=== PATIENT | male | born 1950 | race Hispanic/Latino ===

== ENCOUNTER 2018-02-06 17:56 | Observation (INO) | payer MEDICARE, MEDICAID ==
[2018-02-06 17:56] VITALS: BMI 25.1
--- NOTE | 2018-02-06 18:35 | ED PDOC ---
HPI: Psych/Substance Abuse Time Seen by Provider: 02/06/18 18:25 Chief Complaint (Nursing): Psychiatric Evaluation Chief Complaint (Provider): Aggressive ED Caveat: Dementia History Per: Patient, EMS History/Exam Limitations: clinical condition Onset/Duration Of Symptoms: Days (several days) Additional Complaint(s): Pt[facility] from the [facility] for aggressive behavior and refusing to take meds. States they are poison. Pt. communicating some, but has schizoaffective and dementia issues so H and P limited. Pt. denies any pain. Follows some commands. Not aggressive in the Er. Past Medical History Reviewed: Nursing Documentation, Vital Signs Vital Signs: Last Vital Signs Temp 100.3 F H 02/06/18 17:58 Pulse 99 H 02/06/18 17:58 Resp 18 02/06/18 17:58 BP 124/72 02/06/18 17:58 Pulse Ox 95 02/06/18 17:58 - Medical History PMH: Anemia, Anxiety, Arthritis, Bipolar Disorder, Cardia Arrhythmia, Dementia, Depression, Hepatitis (C), HIV, HTN, Schizophrenia Denies: Diabetes, Chronic Kidney Disease, Seizures, Sexually Transmitted Disease - Family History Family History: States: Unknown Family Hx - Living Arrangements Living Arrangements: Skilled Nursing/Assist Lv - Home Medications Home Medications: Ambulatory Orders Medication Instructions Recorded Acetaminophen [Tylenol 325mg tab] 650 mg PO Q6 PRN MDD 3 GM 02/07/18 Acetaminophen [Tylenol 325mg tab] 650 mg PO Q6 PRN MDD 3 GM 02/07/18 Aspirin [Adult Low Dose Aspirin EC] 81 mg PO DAILY 02/07/18 Emtricitabine/Tenofovir Diso 1 tab PO DAILY 02/07/18 [Truvada 200 MG-300 MG] Magnesium Hydroxide [Milk of 30 ml PO Q72 PRN 02/07/18 Magnesia] RX: Simvastatin [Zocor] 40 mg PO HS 02/07/18 RX: Valproic Acid [Depakene Oral 250 mg PO TID 02/07/18 Syrup] RX: risperiDONE [RisperDAL Tab] 1 mg PO BID 02/07/18 Raltegravir Potassium [Isentress] 400 mg PO BID 02/07/18 - Allergies Allergies/Adverse Reactions: Allergies Allergy/AdvReac Type Severity Reaction Status Date / Time No Known Allergies Allergy Verified 04/19/16 13:28 Review of Systems Review Of Systems: ROS cannot be obtained secondary to pt's inabilty to answer questions. Physical Exam - Reviewed Nursing Documentation Reviewed: Yes Vital Signs Reviewed: Yes - Physical Exam Appears: Positive for: Non-toxic, No Acute Distress Head Exam: Positive for: ATRAUMATIC, NORMAL INSPECTION, NORMOCEPHALIC Skin: Positive for: Normal Color, Warm, DRY Eye Exam: Positive for: Normal appearance, PERRL ENT: Positive for: Normal ENT Inspection Neck: Positive for: Normal, Supple Cardiovascular/Chest: Positive for: Regular Rate, Rhythm Respiratory: Positive for: CNT, Normal Breath Sounds Gastrointestinal/Abdominal: Positive for: Normal Exam, Soft. Negative for: Tenderness Back: Positive for: Normal Inspection Extremity: Positive for: Other (moving extremities on his will; twitching in extremities and face). Negative for: Tenderness Neurologic/Psych: Positive for: Alert, Other (limited and pt. not following all commands and not responding to most questions. ) - Laboratory Results Result Diagrams: 02/06/18 21:23 02/06/18 19:36 Interpretation Of Abn Labs: no acute; lacate 2.2 - ECG ECG: Positive for: Interpreted By Me, Viewed By Mt ECG Rhythm: Positive for: Sinus Rhythm O2 Sat by Pulse Oximetry: 95 Pulse Ox Interpretation: Normal - Radiology X-Ray: Interpreted by Me, Viewed By Mt X-Ray Interpretation: No Acute Disease - Progress ED Course And Treament: 1835: Pt. with low grade temp. Will evaluate for fever sources. Is alert. 2257: No acute infectious etiologies. Comfortable in bed. Medically stable for psych evaluation. 2358: Dr. Morley to take over care. Disposition - Clinical Impression Clinical Impression: Dementia, Altered mental status - Disposition Disposition Time: 23:44 Condition: FAIR
[2018-02-06] MEDS: Sodium Chloride 0.9% 1,000 ML IV SCH (18:52)
[2018-02-06 19:11] LABS: VENOUS BLOOD GAS BASE EXCESS 5.9 mmol/L (0.0-2.0); VENOUS BLOOD GAS PCO2 32 mmHg (40-60); VENOUS BLOOD GAS PO2 112 mm/Hg (30-55); VENOUS BLOOD PH 7.55 (7.32-7.43)
[2018-02-06 19:53] LABS: INR 1.2; PROTHROMBIN TIME 13.4 Seconds (9.8-13.1)
[2018-02-06 19:55] LABS: PARTIAL THROMBOPLASTIN TIME 31.1 Seconds (25.6-37.1)
[2018-02-06 20:00] LABS: ALB/GLOB RATIO 0.9 (1.0-2.1); ALBUMIN 3.4 g/dL (3.5-5.0); ALT/SGPT 32 U/L (21-72); AST/SGOT 38 U/L (17-59); BLOOD UREA NITROGEN 19 mg/dl (9-20); CALCIUM 8.6 mg/dL (8.4-10.2); GFR NON-AFRICAN AMERICAN > 60
[2018-02-06 20:09] LABS: URINE BACTERIA RARE (<OCC); URINE BILIRUBIN NEGATIVE (NEGATIVE); URINE BLOOD NEGATIVE (NEGATIVE); URINE CLARITY SLIGHTY-CLOUDY (Clear); URINE COLOR YELLOW (YELLOW); URINE GLUCOSE (UA) NEG (Normal); URINE LEUKOCYTE ESTERASE NEG Leu/uL (Negative); URINE PROTEIN 100 mg/dL (NEGATIVE)
[2018-02-06 20:24] LABS: BARBITURATES, UR NEGATIVE (NEGATIVE); BENZODIAZEPINES, UR NEGATIVE (NEGATIVE); OPIATES, UR NEGATIVE (NEGATIVE); PHENCYCLIDINE, UR NEGATIVE (NEGATIVE)
[2018-02-06 21:27] LABS: BASO % 0.5 % (0.0-2.0); EOS # 0.1 K/uL (0.0-0.7); EOS % 1.7 % (0.0-4.0); HEMOGLOBIN 13.9 g/dL (12.0-18.0); LYMPH # 1.6 K/uL (1.0-4.3); LYMPH % 22.3 % (20.0-40.0); MEAN CELL VOLUME 94.9 fl (80.0-94.0); MEAN CORPUSCULAR HGB CONC 32.7 g/dL (33.0-37.0); MEAN PLATELET VOLUME 10.4 fl (7.2-11.7); MONO # 1.3 K/uL (0.0-0.8); MONO % 17.5 % (0.0-10.0); NEUT # 4.2 K/uL (1.8-7.0); NRBC % 0.1 % (0.0-0.0); RBC 4.49 Mil/uL (4.40-5.90); RED CELL DISTRIBUTION WIDTH 14.9 % (11.5-14.5); WHITE BLOOD COUNT 7.2 K/uL (4.8-10.8)
--- NOTE | 2018-02-07 00:22 | ED PDOC ---
- Laboratory Results Result Diagrams: 02/06/18 21:23 02/06/18 19:36 - ECG O2 Sat by Pulse Oximetry: 95 (RA) Pulse Ox Interpretation: Normal Medical Decision Making Medical Decision Making: Time: 13 -- Received endorsement from Dr. Abreu, pending crisis evaluation. 0200 Cooperative, no change 0400 Cooperative, no changes 0700 Pending final eval by crisis, will endorse to Dr. Jhaveri Scribe Attestation: Documented by Shahla Vegas, acting as a scribe for Dillan Morley MD. Provider Scribe Attestation: All medical record entries made by the Scribe were at my direction and personally dictated by me. I have reviewed the chart and agree that the record accurately reflects my personal performance of the history, physical exam, medical decision making, and the department course for this patient. I have also personally directed, reviewed, and agree with the discharge instructions and disposition. Disposition - Clinical Impression Clinical Impression: Dementia - POA Present On Arrival: None - Disposition Disposition: Transfer of Care Disposition Time: 07:00 Forms: [facility] (Urdu) Patient Signed Over To: Leo Jhaveri Handoff Comments: pending final crisis eval
[2018-02-07] MEDS: Sodium Chloride 0.9% 1,000 ML IV SCH (07:33)
--- NOTE | 2018-02-07 07:55 | ED PDOC ---
- Laboratory Results Result Diagrams: 02/06/18 21:23 02/06/18 19:36 - ECG O2 Sat by Pulse Oximetry: 95 (RA) - Progress Re-evaluation Time: 07:54 Condition: Re-examined (Stable. No SI/HI) Disposition - Clinical Impression Clinical Impression: Dementia - POA Present On Arrival: None - Disposition Disposition: Rehab Facility/Unit Disposition Time: 07:54 Condition: FAIR Instructions: Dementia (Including Alzheimer Disease) Forms: [facility] (Georgian)
--- NOTE | 2018-02-07 08:41 | RAD ---
Date of service: 02/06/2018 HISTORY: Sepsis Patient COMPARISON: Chest radiograph dated 05/16/2016 FINDINGS: LUNGS: No active pulmonary disease. PLEURA: No significant pleural effusion identified, no pneumothorax apparent. CARDIOVASCULAR: Aortic atherosclerotic calcifications. Cardiomediastinal silhouette stably enlarged. No pulmonary vascular congestion. OSSEOUS STRUCTURES: Unchanged. VISUALIZED UPPER ABDOMEN: Normal. OTHER FINDINGS: None. IMPRESSION: No active disease.
--- NOTE | 2018-02-07 09:03 | CT ---
Date of service: 02/06/2018 PROCEDURE: CT HEAD WITHOUT CONTRAST. HISTORY: headache COMPARISON: CT head dated 11/25/2013 TECHNIQUE: Axial computed tomography images were obtained through the head/brain without intravenous contrast. Radiation dose: Total exam DLP = 1326.42 mGy-cm. This CT exam was performed using one or more of the following dose reduction techniques: Automated exposure control, adjustment of the mA and/or kV according to patient size, and/or use of iterative reconstruction technique. FINDINGS: HEMORRHAGE: No intracranial hemorrhage. BRAIN: No mass effect or edema. Moderate cerebral atrophy. 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 Lacunar infarctions in bilateral cerebellar hemispheres. These findings were not present on the prior study. VENTRICLES: Prominent no hydrocephalus. CALVARIUM: Unremarkable. PARANASAL SINUSES: Unremarkable as visualized. No significant inflammatory changes. MASTOID AIR CELLS: Unremarkable as visualized. No inflammatory changes. OTHER FINDINGS: None. IMPRESSION: No acute intracranial pathology. Age-related changes. 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
[2018-02-07] MEDS ORDERED: Dextrose 5%/Lactated Ringer's 1,000 ML IV SCH ×2 (18:15→18:45)
[2018-02-07] MEDS ORDERED: Magnesium Hydroxide Susp 30 ml UD PO PRN (18:52)
--- NOTE | 2018-02-08 08:31 | CP.PCM.CON ---
History of Present Illness - History of Present Illness History of Present Illness: Psychiatry consult note HPI: 67 yo male with history of schizoaffective disorder-bipolar type, dementia with behavioral disturbances, HIV, HTN, Hepatitis C, was sent from the long term for aggressive behavior, refusal to take medication and poor PO intake. Patient refusing to engage in interview with editorial writer. Local Sales Manager attempted to speak with patient, he opened his eye and then pulled the covers over his face and would not say anything. Past Psychiatric History: History of multiple psychiatric hospitalizations for psychosis and agitation. Currently being treated w/ Risperdal and Depakote. Family History: No family history of psychiatric illness Past Medical History: HIV, HTN, Hepatitis C Social history: Grew up in [place]. 3 brothers and 2 sisters. Studied up to the 9th grade. 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 . +2 sons. Lives in a long term. As per chart history of heroin abuse. No current drug/ etoh use. All: NKDA Impression: 67 yo male with history of schizoaffective disorder-bipolar type, dementia with behavioral disturbances, HIV, HTN, Hepatitis C, presents with aggressive behavior and possible psychosis, unable to evaluate due to patient's refusal to talk to editorial writer. -Titrate Risperdal -Continue Depakote -Patient unable to consent for voluntary psychiatric admission at this time Past Patient History - Infectious Disease Hx of Infectious Diseases: None - Past Social History Smoking Status: Former Smoker - CARDIAC Hx Cardia Arrhythmia: Yes Hx Hypertension: Yes - PULMONARY Hx Tuberculosis: No - NEUROLOGICAL Hx Dementia: Yes Hx Seizures: No - HEENT Hx HEENT Problems: No - RENAL Hx Chronic Kidney Disease: No - ENDOCRINE/METABOLIC Hx Endocrine Disorders: No - HEMATOLOGICAL/ONCOLOGICAL Hx Anemia: Yes Hx Human Immunodeficiency Virus (HIV): Yes - INTEGUMENTARY Hx Dermatological Problems: No - MUSCULOSKELETAL/RHEUMATOLOGICAL Hx Arthritis: Yes - GASTROINTESTINAL Hx Gastrointestinal Disorders: No - GENITOURINARY/GYNECOLOGICAL Hx Sexually Transmitted Disorders: No - PSYCHIATRIC Hx Anxiety: Yes Hx Bipolar Disorder: Yes Hx Depression: Yes Hx Schizophrenia: Yes - SURGICAL HISTORY Hx Surgeries: No - ANESTHESIA Hx Anesthesia: No Meds Allergies/Adverse Reactions: Allergies Allergy/AdvReac Type Severity Reaction Status Date / Time No Known Allergies Allergy Verified 04/19/16 13:28 - Medications Medications: Current Medications Acetaminophen (Tylenol 325mg Tab) 650 mg PO Q6 PRN PRN Reason: Pain, moderate (4-7) Aspirin (Ecotrin) 81 mg PO DAILY [facility] Atorvastatin Calcium (Lipitor) 40 mg PO HS [facility] Emtricitabine/Tenofovir (Truvada 200 Mg-300 Mg) 1 tab PO DAILY [facility]; Protocol Sodium Chloride (Sodium Chloride 0.9%) 1,000 mls @ 1,000 mls/hr IV .Q1H [facility] Last Admin: 02/07/18 07:33 Dose: Not Given Dextrose/Lactated Ringer's (Dextrose 5%/Lactated Ringer's) 1,000 mls @ 80 mls/hr IV .[id number] [facility] Stop: 02/08/18 18:05 Dextrose/Lactated Ringer's (Dextrose 5%/Lactated Ringer's) 1,000 mls @ 80 mls/hr IV .[id number] [facility] Stop: 02/08/18 18:41 Magnesium Hydroxide (Milk Of Magnesia) 30 ml PO Q72 PRN PRN Reason: Constipation Raltegravir (Isentress) 400 mg PO BID [facility]; Protocol Risperidone (Risperdal Tab) 1 mg PO BID [facility] Valproate Sodium (Depakene Oral Syrup) 250 mg PO TID [facility] Results - Vital Signs Recent Vital Signs: Last Vital Signs Temp 98.6 F 02/07/18 16:14 Pulse 82 02/07/18 16:14 Resp 20 02/07/18 16:14 BP 107/66 02/07/18 16:14 Pulse Ox 95 02/07/18 23:44 - Labs Result Diagrams: 02/06/18 21:23 02/06/18 19:36
[2018-02-08] MEDS: Valproic Acid 250 mg/5 ml Oral Syrup (60 ml) PO SCH ×3 (09:07→17:20)
[2018-02-08] MEDS: Emtricitabine-Tenofovir 200 mg-300 mg Tab PO SCH (09:08)
[2018-02-08] MEDS: Risperidone M TAB 2 MG PO SCH (17:20)
--- NOTE | 2018-02-08 23:03 | CP.PCM.HP ---
History of Present Illness - History of Present Illness History of Present Illness: This is a 67 y/o male admitted ofr change in mental status [facility] of [facility] the [facility]. He refused to take his medications as he claims they were poison. Patient could not give full history due to dementia. Medical Hx Anxiety, bipolar disorder HTN cardiac arrhythmia HIV hep C Dementia Present on Admission - Present on Admission Any Indicators Present on Admission: No History of DVT/PE: No History of Uncontrolled Diabetes: No Urinary Catheter: No Decubitus Ulcer Present: No Review of Systems - Review of Systems Systems not reviewed;Unavailable: Uncooperative - Constitutional Constitutional: Daytime Sleepiness - Neurological Neurological: Behavioral Changes, Confusion - Psychiatric Psychiatric: Behavioral Changes Past Patient History - Infectious Disease Hx of Infectious Diseases: None - Past Social History Smoking Status: Former Smoker - CARDIAC Hx Cardia Arrhythmia: Yes Hx Hypertension: Yes - PULMONARY Hx Tuberculosis: No - NEUROLOGICAL Hx Dementia: Yes Hx Seizures: No - HEENT Hx HEENT Problems: No - RENAL Hx Chronic Kidney Disease: No - ENDOCRINE/METABOLIC Hx Endocrine Disorders: No - HEMATOLOGICAL/ONCOLOGICAL Hx Anemia: Yes Hx Human Immunodeficiency Virus (HIV): Yes - INTEGUMENTARY Hx Dermatological Problems: No - MUSCULOSKELETAL/RHEUMATOLOGICAL Hx Arthritis: Yes - GASTROINTESTINAL Hx Gastrointestinal Disorders: No - GENITOURINARY/GYNECOLOGICAL Hx Sexually Transmitted Disorders: No - PSYCHIATRIC Hx Anxiety: Yes Hx Bipolar Disorder: Yes Hx Depression: Yes Hx Schizophrenia: Yes - SURGICAL HISTORY Hx Surgeries: No - ANESTHESIA Hx Anesthesia: No Meds Allergies/Adverse Reactions: Allergies Allergy/AdvReac Type Severity Reaction Status Date / Time No Known Allergies Allergy Verified 04/19/16 13:28 Physical Exam - Head Exam Head Exam: NORMAL INSPECTION - Eye Exam Eye Exam: Normal appearance - ENT Exam ENT Exam: Mucous Membranes Moist - Respiratory Exam Respiratory Exam: Clear to Auscultation Bilateral - Cardiovascular Exam Cardiovascular Exam: REGULAR RHYTHM - GI/Abdominal Exam GI & Abdominal Exam: Normal Bowel Sounds - Neurological Exam Neurological exam: Altered - Psychiatric Exam Psychiatric exam: Agitated Results - Vital Signs Recent Vital Signs: Last Vital Signs Temp 97.3 F L 02/08/18 08:00 Pulse 82 02/07/18 16:14 Resp 20 02/07/18 16:14 BP 107/66 02/07/18 16:14 Pulse Ox 95 02/07/18 23:44 - Labs Result Diagrams: 02/06/18 21:23 02/06/18 19:36 Assessment & Plan (1) Altered mental status Status: Acute (2) Dementia Status: Chronic Priority: Low (3) HTN (hypertension) Status: Chronic (4) History of HIV or AIDS Status: Chronic (5) Schizoaffective disorder Status: Chronic - Assessment and Plan (Free Text) Plan: Cont meds Psych eval Iv hydration labs reviewed Patient is stable for Psych admit.
--- NOTE | 2018-02-08 23:04 | CP.PCM.PN ---
Subjective - Date & Time of Evaluation Date of Evaluation: 02/08/18 Time of Evaluation: 18:35 - Subjective Subjective: Patient remains very aggressive marva with the nurses. No change in clinical sx Remains aggressive and uncooperative. Objective - Vital Signs/Intake and Output Vital Signs (last 24 hours): Temp Pulse Resp BP Pulse Ox 97.3 F L 82 20 107/66 95 02/08/18 08:00 02/07/18 16:14 02/07/18 16:14 02/07/18 16:14 02/07/18 23:44 - Medications Medications: Current Medications Acetaminophen (Tylenol 325mg Tab) 650 mg PO Q6 PRN PRN Reason: Pain, moderate (4-7) Aspirin (Ecotrin) 81 mg PO DAILY [facility] Last Admin: 02/08/18 09:07 Dose: Not Given Atorvastatin Calcium (Lipitor) 40 mg PO HS [facility] Last Admin: 02/08/18 21:04 Dose: Not Given Emtricitabine/Tenofovir (Truvada 200 Mg-300 Mg) 1 tab PO DAILY [facility]; Protocol Last Admin: 02/08/18 09:08 Dose: 1 tab Haloperidol Lactate (Haldol) 2 mg IM Q6 PRN PRN Reason: Agitation Magnesium Hydroxide (Milk Of Magnesia) 30 ml PO Q72 PRN PRN Reason: Constipation Raltegravir (Isentress) 400 mg PO BID [facility]; Protocol Last Admin: 02/08/18 17:20 Dose: 400 mg Risperidone (Risperdal M-Tab) 2 mg PO BID [facility] Last Admin: 02/08/18 17:20 Dose: 2 mg Valproate Sodium (Depakene Oral Syrup) 250 mg PO TID [facility] Last Admin: 02/08/18 17:20 Dose: 250 mg - Labs Labs: 02/06/18 21:23 02/06/18 19:36 PT 13.4 Seconds (9.8-13.1) H 02/06/18 18:22 INR 1.2 02/06/18 18:22 APTT 31.1 Seconds (25.6-37.1) 02/06/18 18:22 - Head Exam Head Exam: NORMAL INSPECTION - Eye Exam Eye Exam: Normal appearance - ENT Exam ENT Exam: Mucous Membranes Moist - Respiratory Exam Respiratory Exam: Clear to Ausculation Bilateral - Cardiovascular Exam Cardiovascular Exam: REGULAR RHYTHM - GI/Abdominal Exam GI & Abdominal Exam: Soft, Normal Bowel Sounds - Neurological Exam Neurological Exam: Altered Assessment and Plan (1) Altered mental status Status: Acute (2) Dementia Status: Chronic (3) Behavioral change Status: Chronic (4) HTN (hypertension) Status: Chronic (5) History of HIV or AIDS Status: Chronic (6) Schizoaffective disorder Status: Chronic - Assessment and Plan (Free Text) Plan: Cont meds Follow up with Psych Medically stable for Psych admit
[2018-02-09] MEDS: Risperidone M TAB 2 MG PO SCH ×3 (10:18→16:42)
[2018-02-09] MEDS: Valproic Acid 250 mg/5 ml Oral Syrup (60 ml) PO SCH ×4 (10:18→16:40)
[2018-02-09] MEDS: Emtricitabine-Tenofovir 200 mg-300 mg Tab PO SCH ×2 (10:18→16:41)
--- NOTE | 2018-02-09 12:37 | CP.PCM.PN ---
Subjective - Date & Time of Evaluation Date of Evaluation: 02/09/18 Time of Evaluation: 11:00 Objective - Vital Signs/Intake and Output Vital Signs (last 24 hours): Temp Pulse Resp BP Pulse Ox 97.9 F 93 H 19 92/56 L 95 02/09/18 08:08 02/09/18 08:08 02/09/18 08:08 02/09/18 08:08 02/09/18 08:08 - Medications Medications: Current Medications Acetaminophen (Tylenol 325mg Tab) 650 mg PO Q6 PRN PRN Reason: Pain, moderate (4-7) Aspirin (Ecotrin) 81 mg PO DAILY [facility] Last Admin: 02/09/18 10:18 Dose: Not Given Atorvastatin Calcium (Lipitor) 40 mg PO HS [facility] Last Admin: 02/08/18 21:04 Dose: Not Given Emtricitabine/Tenofovir (Truvada 200 Mg-300 Mg) 1 tab PO DAILY [facility]; Protocol Last Admin: 02/09/18 10:18 Dose: Not Given Haloperidol Lactate (Haldol) 2 mg IM Q6 PRN PRN Reason: Agitation Magnesium Hydroxide (Milk Of Magnesia) 30 ml PO Q72 PRN PRN Reason: Constipation Raltegravir (Isentress) 400 mg PO BID [facility]; Protocol Last Admin: 02/09/18 10:18 Dose: Not Given Risperidone (Risperdal M-Tab) 2 mg PO BID [facility] Last Admin: 02/09/18 10:18 Dose: Not Given Valproate Sodium (Depakene Oral Syrup) 250 mg PO TID [facility] Last Admin: 02/09/18 10:18 Dose: Not Given - Labs Labs: 02/06/18 21:23 02/06/18 19:36 PT 13.4 Seconds (9.8-13.1) H 02/06/18 18:22 INR 1.2 02/06/18 18:22 APTT 31.1 Seconds (25.6-37.1) 02/06/18 18:22
[2018-02-09 16:52] VITALS: BP 98/62; PULSE 97; RESP 20; TEMP 98.5; O2SAT 97
--- NOTE | 2018-02-09 18:17 | CARD ---
APPROVED REPORT Date of service: 02/06/2018 EKG Measurement Heart [id number] <Conclusion> Sinus tachycardia Baseline artifact. Possible inferior infarct, age undetermined Abnormal ECG
--- NOTE | 2018-02-10 16:52 | CP.PCM.DIS ---
Provider - Provider Date of Admission: 02/07/18 10:19 Attending physician: Demetrio Puckett MD Time Spent in preparation of Discharge (in minutes): 30 Diagnosis - Discharge Diagnosis (1) Altered mental status Status: Resolved (2) Behavioral change Status: Chronic Hospital Course - Lab Results Lab Results: Micro Results 02/06/18 18:22 Blood Blood Culture - Preliminary NO GROWTH AFTER 3 DAYS 02/06/18 18:50 Blood Blood Culture - Preliminary NO GROWTH AFTER 3 DAYS 02/06/18 19:50 Urine,Catheterized Urine Culture - Final No Growth (<1,000 CFU/ML) Most Recent Lab Values WBC 7.2 K/uL (4.8-10.8) 02/06/18 21: RBC 4.49 Mil/uL (4.40-5.90) 02/06/18 21:23 Hgb 13.9 g/dL (12.0-18.0) 02/06/18 21: Hct 42.6 % (35.0-51.0) 02/06/18 21: MCV 94.9 fl (80.0-94.0) H 02/06/18 21:23 MCH 31.0 pg (27.0-31.0) 02/06/18 21: MCHC 32.7 g/dL (33.0-37.0) L 02/06/18 21: RDW 14.9 % (11.5-14.5) H 02/06/18 21: Plt Count 133 K/uL (130-400) 02/06/18 21: MPV 10.4 fl (7.2-11.7) 02/06/18 21: Neut % (Auto) 58.0 % (50.0-75.0) 02/06/18 21: Lymph % (Auto) 22.3 % (20.0-40.0) 02/06/18 21: [place] % (Auto) 17.5 % (0.0-10.0) H 02/06/18 21: Eos % (Auto) 1.7 % (0.0-4.0) 02/06/18 21: Baso % (Auto) 0.5 % (0.0-2.0) 02/06/18: Neut # (Auto) 4.2 K/uL (1.8-7.0) 02/06/18 21:23 Lymph # (Auto) 1.6 K/uL (1.0-4.3) 02/06/18 21:23 [place] # (Auto) 1.3 K/uL (0.0-0.8) H 02/06/18 21:23 Eos # (Auto) 0.1 K/uL (0.0-0.7) 02/06/18: Baso # (Auto) 0.0 K/uL (0.0-0.2) 02/06/18 21: PT 13.4 Seconds (9.8-13.1) H 02/06/18 18: INR 1.2 02/06/18 18: APTT 31.1 Seconds (25.6-37.1) 02/06/18 18:22 pO2 112 mm/Hg (30-55) H 02/06/18 18:47 VBG pH 7.55 (7.32-7.43) H 02/06/18 18:47 VBG pCO2 32 mmHg (40-60) L 02/06/18 18:47 VBG HCO3 29.6 mmol/L 02/06/18 18:47 VBG Total CO2 29.0 mmol/L (22-28) H 02/06/18 18:47 VBG O2 Sat (Calc) 99.6 % (40-65) H 02/06/18 18:47 VBG Base Excess 5.9 mmol/L (0.0-2.0) H 02/06/18 18:47 VBG Potassium 5.0 mmol/L (3.6-5.2) 02/06/18 18:47 Sodium 135.0 mmol/L (132-148) 02/06/18 18:47 Chloride 107.0 mmol/L (98-107) 02/06/18 18:47 Glucose 103 mg/dL (75-110) 02/06/18 18:47 Lactate 2.2 mmol/L (0.7-2.1) H 02/06/18 18:47 FiO2 21.0 % 02/06/18 18:47 Blood Gas Comments Lac=2.2 02/06/18 18:47 Crit Value Called To kena Whipple 02/06/18 18:47 Crit Value Called By 22 02/06/18 18:47 Crit Value Read Back Y 02/06/18 18:47 Blood Gas Notified Time 190902/06/18 18:47 Sodium 141 mmol/l (132-148) 02/06/18 19:36 Potassium 3.6 MMOL/L (3.6-5.0) 02/06/18 19:36 Chloride 106 mmol/L (98-107) 02/06/18 19:36 Carbon Dioxide 27 mmol/L (22-30) 02/06/18 19:36 Anion Gap 12 (10-20) 02/06/18 19:36 BUN 19 mg/dl (9-20) 02/06/18 19:36 Creatinine 1.2 mg/dl (0.8-1.5) 02/06/18 19:36 Est GFR ( Amer) > 60 02/06/18 19:36 Est GFR (Non-Af Amer) > 60 02/06/18 19:36 POC Glucose (mg/dL) 92 mg/dL (65-110) 02/06/18 18:44 Random Glucose 86 mg/dL (75-110) 02/06/18 19:36 Calcium 8.6 mg/dL (8.4-10.2) 02/06/18 19:36 Phosphorus 2.9 mg/dl (2.5-4.5) 02/06/18 19:36 Magnesium 1.9 MG/DL (1.6-2.3) 02/06/18 19:36 Total Bilirubin 1.3 mg/dl (0.2-1.3) 02/06/18 19:36 AST 38 U/L (17-59) 02/06/18 19:36 ALT 32 U/L (21-72) 02/06/18 19:36 Alkaline Phosphatase 74 U/L (38-126) 02/06/18 19:36 Troponin I 0.0220 ng/mL (0.00-0.120) 02/06/18 19:36 Total Protein 7.1 G/DL (6.3-8.2) 02/06/18 19:36 Albumin 3.4 g/dL (3.5-5.0) L 02/06/18 19:36 Globulin 3.7 gm/dL (2.2-3.9) 02/06/18 19:36 Albumin/Globulin Ratio 0.9 (1.0-2.1) L 02/06/18 19:36 Venous Blood Potassium 5.0 mmol/L (3.6-5.2) 02/06/18 18:47 Urine Color Yellow (YELLOW) 02/06/18 19:50 Urine Clarity Slighty-cloudy (Clear) 02/06/18 19:50 Urine pH 6.0 (5.0-8.0) 02/06/18 19:50 Ur Specific [place] 1.025 (1.003-1.030) 02/06/18 19:50 Urine Protein 100 mg/dL (NEGATIVE) 02/06/18 19:50 Urine Glucose (UA) Neg mg/dL (Normal) 02/06/18 19:50 Urine Ketones Trace mg/dL (NEGATIVE) 02/06/18 19:50 Urine Blood Negative (NEGATIVE) 02/06/18 19:50 Urine Nitrate Negative (NEGATIVE) 02/06/18 19:50 Urine Bilirubin Negative (NEGATIVE) 02/06/18 19:50 Urine Urobilinogen 1.0 mg/dL (0.2-1.0) 02/06/18 19:50 Ur Leukocyte Esterase Neg Pia/uL (Negative) 02/06/18 19:50 Urine RBC (Auto) 1 /hpf (0-3) 02/06/18 19:50 Urine Microscopic WBC 6 /hpf (0-5) H 02/06/18 19:50 Urine Bacteria Rare (<OCC) 02/06/18 19:50 Urine Opiates Screen Negative (NEGATIVE) 02/06/18 19:57 Urine Methadone Screen Negative (NEGATIVE) 02/06/18 19:57 Ur Barbiturates Screen Negative (NEGATIVE) 02/06/18 19:57 Ur Phencyclidine Scrn Negative (NEGATIVE) 02/06/18 19:57 Ur Amphetamines Screen Negative (NEGATIVE) 02/06/18 19:57 U Benzodiazepines Scrn Negative (NEGATIVE) 02/06/18 19:57 U Oth Cocaine Metabols Negative (NEGATIVE) 02/06/18 19:57 U Cannabinoids Screen Negative (NEGATIVE) 02/06/18 19:57 Alcohol, Quantitative < 10 mg/dl (0-10) 02/06/18 19:36 Influenza Typ A,B (EIA) Negative for flu a/b (NEGATIVE) 02/06/18 18:22 - Hospital Course Hospital Course: 67 y/o male admitted for change in mental status. [facility] of [facility] behavior at the [facility]. He refused to take his medications as he claims they were poison. Patient was admitted to medical floor. Patient was seen by psychiatrist lamination inspector. Unable to consent voluntary admission and did not meet criteria for involuntary admission. Patient behavior improved and patient medically stable to return to [facility] at this time. Discharge Exam - Head Exam Head Exam: NORMAL INSPECTION - Eye Exam Eye Exam: Normal appearance - Respiratory Exam Respiratory Exam: NORMAL BREATHING PATTERN - Cardiovascular Exam Cardiovascular Exam: REGULAR RHYTHM - GI/Abdominal Exam GI & Abdominal Exam: Normal Bowel Sounds - Back Exam Back exam: NORMAL INSPECTION - Skin Skin Exam: Normal Color, Warm Discharge Plan - Follow Up Plan Condition: FAIR Disposition: TRANSF TO SNF Instructions: Altered Mental Status (DC), Altered Mental Status (GEN)
== END 2018-02-09 19:40 ==
LOC: H.ER 17:56 → H.ERHOLD 02-07 10:19 → H.MEDSURG1 02-07 14:10
PROVIDERS: ADMIT Family Medicine; ATTEND Family Medicine
DX: F03.91 Unspecified dementia, unspecified severity, with behavioral disturbance (principal); F25.0 Schizoaffective disorder, bipolar type; I10 Essential (primary) hypertension; Z79.82 Long term (current) use of aspirin; Z87.891 Personal history of nicotine dependence; Z86.19 Personal history of other infectious and parasitic diseases; D64.9 Anemia, unspecified; F11.10 Opioid abuse, uncomplicated; F29 Unspecified psychosis not due to a substance or known physiological condition; F32.9 Major depressive disorder, single episode, unspecified; F41.9 Anxiety disorder, unspecified; I49.9 Cardiac arrhythmia, unspecified; M19.90 Unspecified osteoarthritis, unspecified site; R41.82 Altered mental status, unspecified; Z21 Asymptomatic human immunodeficiency virus [HIV] infection status
CPT/HCPCS: 70450; 71045; 80053; 81003; 82803; 82948; 83735; 84100; 84484; 85025; 85610; 85730; 87040; 87086; 87804; 93005; 96360; 99285; G0378; G0480; J7030